=== PATIENT | male | born 1945 | race Caucasian/White ===

== ENCOUNTER 2016-10-21 08:51 | Emergency (ER) | payer OTHER ==
--- NOTE | 2016-10-21 09:25 | DIAGNOSTIC IMAGING REPORT ---
PROCEDURE: CT HEAD WITHOUT CONTRAST INDICATION: STROKE, mental status change TECHNIQUE: Axial CT images were acquired through the head. Coronal and sagittal reformations were created. COMPARISON: 08/15/2014 FINDINGS: Motion artifact through the lower aspect of the brain precludes good evaluation of the anterior temporal lobes and cerebellum. Mild cerebral cortical atrophy. New focal hypodensity in the left frontal soriano radiata white matter measuring approximately 1.8 cm and extending caudally to the left caudate nucleus. Additionally, there is a chronic left posterior basal ganglia lacunar infarct. Landa-white matter differentiation is normally maintained. No intracranial hemorrhage or extraaxial fluid collections. Ventricles are normal in size, shape and position. There is no mass, mass effect or midline shift. The calvarium is intact. The paranasal sinuses and mastoid air cells are normally aerated. The extracranial soft tissues and orbits are normal. IMPRESSION: 1. There is a new white matter infarct in the left frontal lobe soriano radiata since the prior study, potentially acute. 2. Chronic left posterior basal ganglia lacunar infarct. 3. No hemorrhage. 4. Findings discussed with Dr. Monge at [address] scans at this facility use dose modulation, iterative reconstruction, and/or weight-based dosing when appropriate to reduce radiation dose to as low as reasonably achievable.
--- NOTE | 2016-10-21 11:03 | DIAGNOSTIC IMAGING REPORT ---
PROCEDURE: US BILATERAL CAROTID DOPPLER INDICATION: STROKE/CVA TECHNIQUE: Color Doppler duplex imaging of the carotid and vertebral vessels. COMPARISON: 08/05/2014 FINDINGS: Right carotid system: Minimal eccentric carotid bulb mixed calcified and noncalcified plaque. No significant subjective luminal stenosis. Normal wave forms. Left carotid system: Short, 7 mm focal, mainly calcified shadowing plaque at the internal carotid artery origin causing mild subjective luminal stenosis. Vertebral System: Antegrade vertebral artery flow bilaterally. Right common carotid artery peak systolic velocity 72 cm/second. Right internal carotid artery peak systolic velocity 71 cm/second. Right external carotid artery peak systolic velocity 93 cm/second. Right gaiokduy-pg-uqmzxw carotid artery ratio 1.0 Right vertebral artery peak systolic velocity 32 cm/second. Left common carotid artery peak systolic velocity 65 cm/second. Left internal carotid artery peak systolic velocity 67 cm/second. Left external carotid artery peak systolic velocity 78 cm/second. Left djzwnqms-jf-sfyiqg carotid artery ratio 1.0 Left vertebral artery peak systolic velocity 33 cm/second. IMPRESSION: 1. New focal calcified plaque at the left internal carotid artery origin causing mild subjective luminal stenosis, estimated to be between 16 and 49%. 2. Minimal atherosclerotic plaque in the right carotid system, stable compared to the prior study. 3. Antegrade vertebral artery flow bilaterally. Velocity criteria are extrapolated from diameter data as defined by the Society of Radiologists in Ultrasound Consensus Conference, Radiology 2003; 229; 340-346.
--- NOTE | 2016-10-21 11:03 | DIAGNOSTIC IMAGING REPORT ---
PROCEDURE: US BILATERAL CAROTID DOPPLER INDICATION: STROKE/CVA TECHNIQUE: Color Doppler duplex imaging of the carotid and vertebral vessels. COMPARISON: 08/05/2014 FINDINGS: Right carotid system: Minimal eccentric carotid bulb mixed calcified and noncalcified plaque. No significant subjective luminal stenosis. Normal wave forms. Left carotid system: Short, 7 mm focal, mainly calcified shadowing plaque at the internal carotid artery origin causing mild subjective luminal stenosis. Vertebral System: Antegrade vertebral artery flow bilaterally. Right common carotid artery peak systolic velocity 72 cm/second. Right internal carotid artery peak systolic velocity 71 cm/second. Right external carotid artery peak systolic velocity 93 cm/second. Right xokxpstx-br-xhbvhb carotid artery ratio 1.0 Right vertebral artery peak systolic velocity 32 cm/second. Left common carotid artery peak systolic velocity 65 cm/second. Left internal carotid artery peak systolic velocity 67 cm/second. Left external carotid artery peak systolic velocity 78 cm/second. Left rzahexzk-jm-crhfhf carotid artery ratio 1.0 Left vertebral artery peak systolic velocity 33 cm/second. IMPRESSION: 1. New focal calcified plaque at the left internal carotid artery origin causing mild subjective luminal stenosis, estimated to be between 16 and 49%. 2. Minimal atherosclerotic plaque in the right carotid system, stable compared to the prior study. 3. Antegrade vertebral artery flow bilaterally. Velocity criteria are extrapolated from diameter data as defined by the Society of Radiologists in Ultrasound Consensus Conference, Radiology 2003; 229; 340-346.
--- NOTE | 2016-10-21 15:06 | DIAGNOSTIC IMAGING REPORT ---
PROCEDURE: US ABDOMEN ULTRASOUND-LIMITED INDICATION: ABNORMAL LFT TECHNIQUE: Landa scale and color Doppler sonographic images were obtained of the right upper quadrant. COMPARISON: CT abdomen pelvis 07/14/2014, abdominal ultrasound 05/04/2011 FINDINGS: Suboptimal exam secondary to the patient's body habitus, and inability to hold breath, and mobility problems. Liver is moderately enlarged measuring 20 cm in length and the parenchyma demonstrates diffuse hyper echogenicity. Along the anterior superior aspect of the left lobe of the liver, there is a partially exophytic, ovoid hypoechoic liver mass measuring 2.6 x 1.9 x 1.6 cm. Color Doppler imaging demonstrates vascularity towards this mass and a small amount within it. Its margins are somewhat irregular. No other liver masses or biliary dilatation. The gallbladder is distended but has normal wall thickness at 2.7 mm. Common duct is normal at 5.8 mm. No stones, sludge, pericholecystic fluid or Fitch's sign. Right kidney measures 11 cm in length. The visible portion of the pancreas is normal. The tail is not seen. Inferior vena cava and abdominal aorta are normal caliber. No free fluid in Morison's pouch. IMPRESSION: 1. No sonographic evidence of cholelithiasis or cholecystitis. 2. Mildly enlarged, hyperechoic liver with a 2.6 cm partially exophytic left lobe mass. Differential diagnosis includes fatty liver with focal fatty sparing , intrinsic liver disease with a regenerative or dysplastic nodule, possibly hepatocellular carcinoma, or adenoma. Routine three phase liver CT is recommended for further evaluation. Correlation with AFP levels may be useful. 3. Discussed with Dr. Pascual in the emergency room.
--- NOTE | 2016-10-21 16:28 | ED NURSING NOTES ---
Clinical Report - Nurses [facility] [address] [place] [address] 10/21/2016 8:51 Patient: BARBIE RUSHING TRIAGE Triage time 09:05. Chief Complaint: IMPAIRED SPEECH and FACIAL DROOP. --09:24 Harriett Valdes R.N. Acuity: LEVEL 2. --09:57 Harriett Valdes R.N. 09:15. --18:37 Harriett Valdes R.N. 09:15 10/21/16. BP: 83/62. HR: 73. RR: 22. O2 saturation: 97% on nasal cannula at 2 liters/minute. Temp: 97.9 F. Pain level now: 0/10. --18:37 Harriett Valdes R.N. Weight: 131.5 kg stated. Height/Length: 71 inches Per Patient. BMI: 40.5. --09:24 Harriett Valdes R.N. Medications Gabapentin Oral 300 mg, at bedtime. HCTZ 1/2 tab daily. Methadone HCl Oral (Tablet 10 mg) 1 tablet. Symbicort Inhalation (Aerosol 160-4.5 mcg/act). Topamax Oral 25 mg, 2x a day. ZyrTEC Allergy Oral (Tablet 10 mg) 1 tablet. --09:15 Harriett Valdes R.N. Lotrisone External. --09:15 Harriett Valdes R.N. Atorvastatin Calcium Oral. --09:16 Harriett Valdes R.N. Plavix Oral. --09:16 Harriett Valdes R.N. Nystop External. --09:16 Harriett Valdes R.N. Nystatin & Diaper Rash Product External. --09:16 Harriett Valdes R.N. MiraLax Oral. --09:17 Harriett Valdes R.N. OxyCODONE HCl Oral. --09:17 Harriett Valdes R.N. Spiriva HandiHaler Inhalation. --09:18 Harriett Valdes R.N. TraZODone HCl Oral. --09:20 Harriett Valdes R.N. LIsinopril. --09:21 Harriett Valdes R.N. Lisinopril Oral. --09:21 Harriett Valdes R.N. Aspirin Oral. --09:21 Harriett Valdes R.N. Theophylline Oral. --09:21 Harriett Valdes R.N. Metformin. --09:21 Harriett Valdes R.N. MetFORMIN HCl Oral. --09:21 Harriett Valdes R.N. Coreg. --09:21 Harriett Valdes R.N. Coreg Oral. --09:22 Harriett Valdes R.N. Effexor XR Oral. --09:22 Harriett Valdes R.N. ProAir HFA Inhalation. --09:22 Harriett Valdes R.N. Omeprazole Oral. --10:00 Harriett Valdes R.N. Allergies Cialis. --09:10 Harriett Valdes R.N. History Arrived by EMS. Historian: patient. ( at 0600 patient noticed some slurred speech and some minor confusin). Treatment SURVEILLANCE SYSTEMS ANALYST: None. See EMS report. --09:24 Harriett Valdes R.N. SOCIAL HX: Former smoker, end date 1999 (patient chews). No alcohol use or drug use. No infectious disease exposure. ABUSE ASSESSMENT: No report of abuse. SELF HARM ASSESSMENT: A self harm assessment was performed. The patient answered "no" to the question "Do you have thoughts of harming or killing yourself?" and "Are you here because you tried to hurt yourself?". FALL RISK ASSESSMENT: Fall risk assessment completed. No fall risk identified. NUTRITIONAL RISK ASSESSMENT: The nutritional risk assessment revealed no deficiencies. LEARNING NEEDS ASSESSMENT: The learning needs assessment revealed no barriers. FUNCTIONAL ASSESSMENT: Functional assessment performed: independent with the activities of daily living. SKIN INTEGRITY ASSESSMENT: Skin integrity risk assessment completed. No skin integrity risk identified. --09:57 Harriett Valdes R.N. PROBLEMS: TIA - Transient Ischemic Attack. Bowel Obstruction. Bipolar Disorder. Hepatitis. COPD - Chronic Obstructive Pulmonary Disease. Immunizations. Hypertension. Diabetes Mellitus. --09:09 Harriett Valdes R.N. Hypogonadism. Gastroesophageal Reflux Disease. Neuropathy. Obstructive Sleep Apnea. --09:53 Harriett Valdes R.N. Interventions ID band on patient. To treatment room. --09:57 Harriett Valdes R.N. PHYSICAL ASSESSMENT To room via stretcher. Patient gowned. ( patient able to smile and doesn't appear to have facial symmetry). GENERAL / NEURO / PSYCH: Awake. Oriented X 4. Alert. Appears in no acute distress. [place] Coma Scale: 15- eyes open spontaneously (4); best verbal response- oriented x 4 (5); best motor response- obeys commands (6). Slurred speech. Mood/affect normal. No motor deficit. No sensory deficit. NIH Stroke Scale: score 2. Performed at 0910. Level of Consciousness: alert (0). LOC Questions: both (0). LOC Commands: both (0). Best gaze: normal (0). Visual field loss: none (0). Facial palsy: normal (0). Motor arm: no drift right arm (0) and no drift left arm (0). Motor leg: no drift right leg (0) and no drift left leg (0). Limb ataxia: none (0). Sensory loss: none (0). Aphasia: mild to moderate (1). Dysarthria: mild to moderate (1). Extinction and inattention: none (0). HEENT: No signs of head trauma. CVS: Cardiac rhythm: atrial fib/flutter. SKIN: Skin is dry. --09:40 Harriett Valdes R.N. 09:17 10/21/16. BP: 83/62. HR: 73. RR: 22. O2 saturation: 97%. Temp: 97.9 F. --09:40 Harriett Valdes R.N. NURSING PROGRESS NOTES EKG time: (911). EKG was ordered, performed by a tech and shown to the ED physician. --09:26 Lynette Garcia 09:16 10/21/2016 Site #1 started via IV in the left forearm with an 20g angiocath, with aseptic technique and good blood return; one attempt. Blood drawn: rainbow set. Labeled in the presence of the patient and sent to the lab. Saline lock flushed with 5 mL saline (placed by Kailey Durbin RN). --09:26 Harriett Valdes R.N. ( [facility] [place] 162). --09:28 Harriett Valdes R.N. Oxygen administered at 2 liters. Patient gowned. Two patient identifiers checked. Call light placed in reach. Side rails up x 2. Bed placed in lowest position. Brakes of bed on. ED physician notified. --09:41 Harriett Valdes R.N. 09:48 10/21/2016 Aspirin PO 325 mg given. Allergies verified and confirmed 5 rights. --09:48 Harriett Valdes R.N. 09:35. ( [facility] [place] 162). --09:49 Harriett Valdes R.N. ( patient given oral fluids, swallowing without difficulty). --09:50 Harriett Valdes R.N. 10:12 10/21/2016 Started bag #1 1000 mL IV Fluids IV NS (Saline); at 1000 mL/hr via site #1. Allergies verified and confirmed 5 rights. IV patency established. IV site checked: no pain, redness, or swelling. IV flushed thoroughly pre- and post-medication administration. --10:12 Harriett Valdes R.N. 08:56. ( patient to CT immediately upon arrival). --10:29 Harriett Valdes R.N. Reassessment after fluids administered. He reports no complaints and he is resting quietly. Overall patient status is the same. GENERAL / NEURO / PSYCH: Alert. Oriented X 4. Patient's speech is slurred. RESPIRATORY: No respiratory distress. SKIN: Skin is warm and dry. --11:07 Harriett Valdes R.N. 11:06 10/21/2016 IV Fluids IV NS Discontinued: bag #1 infused. Total amount infused: 1000 mL. IV patency established. IV site checked: no pain, redness, or swelling. IV flushed thoroughly. --11:16 Harriett Valdes R.N. 11:07 10/21/2016 Started bag #1 1000 mL IV Fluids IV NS (Saline); at 1000 mL/hr via site #1 --11:17 Harriett Valdes R.N. 12:43 10/21/2016 IV Fluids IV NS Bag Change: bag #2 infused. Total amount infused: 1000. STARTED bag #3 (1000 mL) at 150 mL/hr via IV pump. Confirmed 5 rights. IV patency established. IV site checked: no pain, redness, or swelling. IV flushed thoroughly. --12:58 Harriett Valdes R.N. 14:34 10/21/2016 Duoneb (Ipratropium-Albuterol) Neb TX Nebulizer 1 unit dose given. Given by the respiratory therapist. Allergies verified and confirmed 5 rights. Juvenal Fritz --15:19 Juvenal Fritz 11:00 10/21/16. BP: 84/63. HR: 71. RR: 17. O2 saturation: 98%. 10:30 10/21/16. BP: 77/57. HR: 70. RR: 17. O2 saturation: 98%. 10:15 10/21/16. BP: 84/52. HR: 74. RR: 20. O2 saturation: 98%. 10:00 10/21/16. BP: 82/56. HR: 73. RR: 18. O2 saturation: 99%. 09:45 10/21/16. BP: 77/60. HR: 76. RR: 16. O2 saturation: 98%. 09:17 10/21/16. BP: 83/62. HR: 73. RR: 22. O2 saturation: 97%. Temp: 97.9 F. --15:59 Harriett Valdes R.N. 11:30 10/21/16. BP: 91/57. HR: 69. RR: 16. O2 saturation: 99%. --16:01 Harriett Valdes R.N. 15:30 10/21/16. BP: 110/73. HR: 77. RR: 23. O2 saturation: 99%. 15:00 10/21/16. BP: 79/54. HR: 70. RR: 17. O2 saturation: 97%. 14:30 10/21/16. BP: 72/38. HR: 72. RR: 16. O2 saturation: 98%. 14:00 10/21/16. BP: 81/59. HR: 70. RR: 16. O2 saturation: 97%. 13:45 10/21/16. BP: 81/61. HR: 71. RR: 16. 13:00 10/21/16. BP: 92/59. HR: 74. RR: 23. O2 saturation: 98%. 12:30 10/21/16. BP: 88/68. HR: 77. RR: 18. O2 saturation: 98%. 12:00 10/21/16. BP: 85/53. HR: 71. RR: 16. O2 saturation: 98%. --16:07 Harriett Valdes R.N. Reassessment after fluids administered. He reports no complaints. Overall patient status is improved- he states feels better. ( patient ambulated down [address] with walker. Patient lifted walker and carried it with him. He became a little dyspneic upon returning to room and sitting down. Placed back on O2 at 2L.). GENERAL / NEURO / PSYCH: Alert. Oriented X 4. --16:09 Harriett Valdes R.N. [facility]-- 0905. --18:15 Harriett Valdes R.N. --END STRIKE>> Correction --18:15 Harriett Valdes R.N. 17:30. ( 1730 Administered 10 mg Xarelto PO,unable to chart in CPOE as it would not accept charting.). --17:46 Harriett Valdes R.N. DISPOSITION / DISCHARGE 17:40 10/21/2016 IV Fluids IV NS Discontinued: bag #3 discontinued upon discharge. Total amount infused: 750 mL. IV patency established. IV site checked: no pain, redness, or swelling. IV flushed thoroughly. --18:00 Harriett Valdes R.N. 17:44 10/21/2016 Site #1 removed upon discharge. Catheter intact. Pressure dressing applied. --17:59 Harriett Valdes R.N. Departure time: 1744. Condition at departure: improved. ( Last sets of vitals did not print). No learning barriers present. Discharge instructions provided and reviewed with the patient. Patient verbalized understanding. Written instructions provided in [place]. ( appointment were set for patient follow-up for his pcp and for an echocardiogram.). The patient was discharged home and accompanied by inker and opaquer. He left the Emergency Department in a wheelchair and via private vehicle. Squirt Machine Operator driving. --18:05 Harriett Valdes R.N. 17:58 10/21/16. RR: 20. O2 saturation: 98%. Temp: 97.6 F. Pain level now 0/10. --18:05 Harriett Valdes R.N. Locked/Released at 10/21/2016 18:38 by Harriett Valdes R.N.
--- NOTE | 2016-10-21 16:28 | ED NURSING NOTES ---
Clinical Report - Nurses [facility] [address] [place] [address] 10/21/2016 8:51 Patient: BARBIE RUSHING TRIAGE Triage time 09:05. Chief Complaint: IMPAIRED SPEECH and FACIAL DROOP. --09:24 Harriett Valdes R.N. Acuity: LEVEL 2. --09:57 Harriett Valdes R.N. 09:15. --18:37 Harriett Valdes R.N. 09:15 10/21/16. BP: 83/62. HR: 73. RR: 22. O2 saturation: 97% on nasal cannula at 2 liters/minute. Temp: 97.9 F. Pain level now: 0/10. --18:37 Harriett Valdes R.N. Weight: 131.5 kg stated. Height/Length: 71 inches Per Patient. BMI: 40.5. --09:24 Harriett Valdes R.N. Medications Gabapentin Oral 300 mg, at bedtime. HCTZ 1/2 tab daily. Methadone HCl Oral (Tablet 10 mg) 1 tablet. Symbicort Inhalation (Aerosol 160-4.5 mcg/act). Topamax Oral 25 mg, 2x a day. ZyrTEC Allergy Oral (Tablet 10 mg) 1 tablet. --09:15 Harriett Valdes R.N. Lotrisone External. --09:15 Harriett Valdes R.N. Atorvastatin Calcium Oral. --09:16 Harriett Valdes R.N. Plavix Oral. --09:16 Harriett Valdes R.N. Nystop External. --09:16 Harriett Valdes R.N. Nystatin & Diaper Rash Product External. --09:16 Harriett Valdes R.N. MiraLax Oral. --09:17 Harriett Valdes R.N. OxyCODONE HCl Oral. --09:17 Harriett Valdes R.N. Spiriva HandiHaler Inhalation. --09:18 Harriett Valdes R.N. TraZODone HCl Oral. --09:20 Harriett Valdes R.N. LIsinopril. --09:21 Harriett Valdes R.N. Lisinopril Oral. --09:21 Harriett Valdes R.N. Aspirin Oral. --09:21 Harriett Valdes R.N. Theophylline Oral. --09:21 Harriett Valdes R.N. Metformin. --09:21 Harriett Valdes R.N. MetFORMIN HCl Oral. --09:21 Harriett Valdes R.N. Coreg. --09:21 Harriett Valdes R.N. Coreg Oral. --09:22 Harriett Valdes R.N. Effexor XR Oral. --09:22 Harriett Valdes R.N. ProAir HFA Inhalation. --09:22 Harriett Valdes R.N. Omeprazole Oral. --10:00 Harriett Valdes R.N. Allergies Cialis. --09:10 Harriett Valdes R.N. History Arrived by EMS. Historian: patient. ( at 0600 patient noticed some slurred speech and some minor confusin). 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 See EMS report. --09:24 Harriett Valdes R.N. SOCIAL HX: Former smoker, end date 1999 (patient chews). No alcohol use or drug use. No infectious disease exposure. ABUSE ASSESSMENT: No report of abuse. SELF HARM ASSESSMENT: A self harm assessment was performed. The patient answered "no" to the question "Do you have thoughts of harming or killing yourself?" and "Are you here because you tried to hurt yourself?". FALL RISK ASSESSMENT: Fall risk assessment completed. No fall risk identified. NUTRITIONAL RISK ASSESSMENT: The nutritional risk assessment revealed no deficiencies. LEARNING NEEDS ASSESSMENT: The learning needs assessment revealed no barriers. FUNCTIONAL ASSESSMENT: Functional assessment performed: independent with the activities of daily living. SKIN INTEGRITY ASSESSMENT: Skin integrity risk assessment completed. No skin integrity risk identified. --09:57 Harriett Valdes R.N. PROBLEMS: TIA - Transient Ischemic Attack. Bowel Obstruction. Bipolar Disorder. Hepatitis. COPD - Chronic Obstructive Pulmonary Disease. Immunizations. Hypertension. Diabetes Mellitus. --09:09 Harriett Valdes R.N. Hypogonadism. Gastroesophageal Reflux Disease. Neuropathy. Obstructive Sleep Apnea. --09:53 Harriett Valdes R.N. Interventions ID band on patient. To treatment room. --09:57 Harriett Valdes R.N. PHYSICAL ASSESSMENT To room via stretcher. Patient gowned. ( patient able to smile and doesn't appear to have facial symmetry). GENERAL / NEURO / PSYCH: Awake. Oriented X 4. Alert. Appears in no acute distress. Hurst Coma Scale: 15- eyes open spontaneously (4); best verbal response- oriented x 4 (5); best motor response- obeys commands (6). Slurred speech. Mood/affect normal. No motor deficit. No sensory deficit. NIH Stroke Scale: score 2. Performed at 0910. Level of Consciousness: alert (0). LOC Questions: both (0). LOC Commands: both (0). Best gaze: normal (0). Visual field loss: none (0). Facial palsy: normal (0). Motor arm: no drift right arm (0) and no drift left arm (0). Motor leg: no drift right leg (0) and no drift left leg (0). Limb ataxia: none (0). Sensory loss: none (0). Aphasia: mild to moderate (1). Dysarthria: mild to moderate (1). Extinction and inattention: none (0). HEENT: No signs of head trauma. CVS: Cardiac rhythm: atrial fib/flutter. SKIN: Skin is dry. --09:40 Harriett Valdes R.N. 09:17 10/21/16. BP: 83/62. HR: 73. RR: 22. O2 saturation: 97%. Temp: 97.9 F. --09:40 Harriett Valdes R.N. NURSING PROGRESS NOTES EKG time: (911). EKG was ordered, performed by a tech and shown to the ED physician. --09:26 Lynette Garcia 09:16 10/21/2016 Site #1 started via IV in the left forearm with an 20g angiocath, with aseptic technique and good blood return; one attempt. Blood drawn: rainbow set. Labeled in the presence of the patient and sent to the lab. Saline lock flushed with 5 mL saline (placed by Kailey Durbin RN). --09:26 Harriett Valdes R.N. ( [id number]). --09:28 Harriett Valdes R.N. Oxygen administered at 2 liters. Patient gowned. Two patient identifiers checked. Call light placed in reach. Side rails up x 2. Bed placed in lowest position. Brakes of bed on. ED physician notified. --09:41 Harriett Valdes R.N. 09:48 10/21/2016 Aspirin PO 325 mg given. Allergies verified and confirmed 5 rights. --09:48 Harriett Valdes R.N. 09:35. ( [facility]). --09:49 Harriett Valdes R.N. ( patient given oral fluids, swallowing without difficulty). --09:50 Harriett Valdes R.N. 10:12 10/21/2016 Started bag #1 1000 mL IV Fluids IV NS (Saline); at 1000 mL/hr via site #1. Allergies verified and confirmed 5 rights. IV patency established. IV site checked: no pain, redness, or swelling. IV flushed thoroughly pre- and post-medication administration. --10:12 Harriett Valdes R.N. 08:56. ( patient to CT immediately upon arrival). --10:29 Harriett Valdes R.N. Reassessment after fluids administered. He reports no complaints and he is resting quietly. Overall patient status is the same. GENERAL / NEURO / PSYCH: Alert. Oriented X 4. Patient's speech is slurred. RESPIRATORY: No respiratory distress. SKIN: Skin is warm and dry. --11:07 Harriett Valdes R.N. 11:06 10/21/2016 IV Fluids IV NS Discontinued: bag #1 infused. Total amount infused: 1000 mL. IV patency established. IV site checked: no pain, redness, or swelling. IV flushed thoroughly. --11:16 Harriett Valdes R.N. 11:07 10/21/2016 Started bag #1 1000 mL IV Fluids IV NS (Saline); at 1000 mL/hr via site #1 --11:17 Harriett Valdes R.N. 12:43 10/21/2016 IV Fluids IV NS Bag Change: bag #2 infused. Total amount infused: 1000. STARTED bag #3 (1000 mL) at 150 mL/hr via IV pump. Confirmed 5 rights. IV patency established. IV site checked: no pain, redness, or swelling. IV flushed thoroughly. --12:58 Harriett Valdes R.N. 14:34 10/21/2016 Duoneb (Ipratropium-Albuterol) Neb TX Nebulizer 1 unit dose given. Given by the respiratory therapist. Allergies verified and confirmed 5 rights. Juvenal Fritz --15:19 Juvenal Fritz 11:00 10/21/16. BP: 84/63. HR: 71. RR: 17. O2 saturation: 98%. 10:30 10/21/16. BP: 77/57. HR: 70. RR: 17. O2 saturation: 98%. 10:15 10/21/16. BP: 84/52. HR: 74. RR: 20. O2 saturation: 98%. 10:00 10/21/16. BP: 82/56. HR: 73. RR: 18. O2 saturation: 99%. 09:45 10/21/16. BP: 77/60. HR: 76. RR: 16. O2 saturation: 98%. 09:17 10/21/16. BP: 83/62. HR: 73. RR: 22. O2 saturation: 97%. Temp: 97.9 F. --15:59 Harriett Valdes R.N. 11:30 10/21/16. BP: 91/57. HR: 69. RR: 16. O2 saturation: 99%. --16:01 Harriett Valdes R.N. 15:30 10/21/16. BP: 110/73. HR: 77. RR: 23. O2 saturation: 99%. 15:00 10/21/16. BP: 79/54. HR: 70. RR: 17. O2 saturation: 97%. 14:30 10/21/16. BP: 72/38. HR: 72. RR: 16. O2 saturation: 98%. 14:00 10/21/16. BP: 81/59. HR: 70. RR: 16. O2 saturation: 97%. 13:45 10/21/16. BP: 81/61. HR: 71. RR: 16. 13:00 10/21/16. BP: 92/59. HR: 74. RR: 23. O2 saturation: 98%. 12:30 10/21/16. BP: 88/68. HR: 77. RR: 18. O2 saturation: 98%. 12:00 10/21/16. BP: 85/53. HR: 71. RR: 16. O2 saturation: 98%. --16:07 Harriett Valdes R.N. Reassessment after fluids administered. He reports no complaints. Overall patient status is improved- he states feels better. ( patient ambulated down [address] with walker. Patient lifted walker and carried it with him. He became a little dyspneic upon returning to room and sitting down. Placed back on O2 at 2L.). GENERAL / NEURO / PSYCH: Alert. Oriented X 4. --16:09 Harriett Valdes R.N. [facility]. --18:15 Harriett Valdes R.N. --END STRIKE>> Correction --18:15 Harriett Valdes R.N. 17:30. ( 1730 Administered 10 mg Xarelto PO,unable to chart in CPOE as it would not accept charting.). --17:46 Harriett Valdes R.N. DISPOSITION / DISCHARGE 17:40 10/21/2016 IV Fluids IV NS Discontinued: bag #3 discontinued upon discharge. Total amount infused: 750 mL. IV patency established. IV site checked: no pain, redness, or swelling. IV flushed thoroughly. --18:00 Harriett Valdes R.N. 17:44 10/21/2016 Site #1 removed upon discharge. Catheter intact. Pressure dressing applied. --17:59 Harriett Valdes R.N. Departure time: 1744. Condition at departure: improved. ( Last sets of vitals did not print). No learning barriers present. Discharge instructions provided and reviewed with the patient. Patient verbalized understanding. Written instructions provided in Polish. ( appointment were set for patient follow-up for his pcp and for an echocardiogram.). The patient was discharged home and accompanied by library cataloging technician. He left the Emergency Department in a wheelchair and via private vehicle. Senior Communications Specialist driving. --18:05 Harriett Valdes R.N. 17:58 10/21/16. RR: 20. O2 saturation: 98%. Temp: 97.6 F. Pain level now 0/10. --18:05 Harriett Valdes R.N. Locked/Released at 10/21/2016 18:38 by Harriett Valdes R.N.
--- NOTE | 2016-10-21 16:28 | ED CLINICAL REPORT ---
Clinical Report - Physicians/Mid Levels [facility] [address] [place] [address] 10/21/2016 8:51 Patient: BARBIE RUSHING Time Seen: 08:56; initial patient contact. Arrived- By ambulance. HISTORY OF PRESENT ILLNESS Chief Complaint: IMPAIRED SPEECH. confusion. This started today, unknown when patient was last known well and is still present but is better now. No weakness, numbness, tingling, visual disturbance or impaired swallowing. No recent fall. He has had difficulty with speech. No difficulty walking. At its maximum deficit described as mild. When seen in the E.D., it was almost gone. No dizziness, altered mental status, seizure or blackouts. Usually is alert and oriented X3. He usually walks without assistance. (Patient states that he had been up this morning watching TV, and noticed that he was feeling confused. He thinks the symptoms may have started around 6:00, but this also may have been earlier, as he had been up watching TV for some time and head been dozing intermittently. He states he thought that his brother was in the room with him, but he was not. Patient does state that he has some pieces of furniture that are in back of the chair that he sits and to watch TV, and sometimes out of the corner of his eye, he thinks that somebody is in the room with him. However, it is really just the furniture he states. Patient also states that he felt as though he was part of the TV program he was watching. Patient states that he waited a while, thinking that the symptoms would go away on their own, but after some time he decided to call EMS. He states that when he spoke with the dispatcher on the phone, he noticed that his speech was not as clear as normal. However, he states that he did not have his dentures in, and that his mouth was also dry, so he is not sure what the cause of the unclear speech was. Patient denies any focal deficits anywhere else. He denies any visual changes. No new facial droop, no extremity weakness, no difficulty getting up out of his chair, no difficulty with ambulation. Patient states that overall he feels he has been doing well living at home. He has a friend who stops by to bring him groceries, but patient states he handles his medications himself. Dr. Boles is his primary care physician. Patient states after taking a sip of water here in the emergency department, his speech seems much better and that he felt that it is back to normal. Patient does have a history of a CVA previously, which she states left one side weak for some time, though this is mostly resolved. Patient states he is on aspirin for his atrial fibrillation but does not think he still takes Plavix. He is not on Coumadin.). Similar symptoms previously: Worse. Recent medical care: Not recently seen/assessed. REVIEW OF SYSTEMS No fever, headache, head injury, chest pain or difficulty breathing. No cough, sputum production, sore throat, abdominal pain or nausea. No diarrhea, black stools, difficulty with urination, skin rash or enlarged lymph nodes. No joint pain, vomiting, bloody stools or back pain. All systems otherwise negative, except as recorded above. PAST HISTORY Problems: Hypogonadism. Gastroesophageal Reflux Disease. Neuropathy. Obstructive Sleep Apnea. TIA - Transient Ischemic Attack. Bowel Obstruction. Bipolar Disorder. Hepatitis. COPD - Chronic Obstructive Pulmonary Disease. Immunizations. Hypertension. Diabetes Mellitus. Additional Surgeries: Hernia Repair. Knee Surgery. Medications: ProAir HFA Inhalation. Effexor XR Oral. Coreg Oral. Coreg. MetFORMIN HCl Oral. Metformin. Theophylline Oral. Aspirin Oral. Lisinopril Oral. LIsinopril. TraZODone HCl Oral. Spiriva HandiHaler Inhalation. OxyCODONE HCl Oral. MiraLax Oral. Nystatin & Diaper Rash Product External. Nystop External. Plavix Oral. Atorvastatin Calcium Oral. Lotrisone External. Gabapentin Oral 300 mg, at bedtime. HCTZ 1/2 tab daily. Methadone HCl Oral (Tablet 10 mg) 1 tablet. Symbicort Inhalation (Aerosol 160-4.5 mcg/act). Topamax Oral 25 mg, 2x a day. ZyrTEC Allergy Oral (Tablet 10 mg) 1 tablet. Allergies: Cialis. SOCIAL HISTORY Former smoker, end date 1999. No alcohol use or drug use. Patient uses chew. ADDITIONAL NOTES The nursing notes have been reviewed. PHYSICAL EXAM Vital Signs: 10/21/2016 09:17 BP: 83/62. HR: 73. RR: 22. O2 saturation: 97%. Temp: 97.9 F. Have been reviewed and appear to be correct. Appearance: Alert. No acute distress. Head: Head atraumatic. Eyes: Pupils equal, round and reactive to light. ENT: Normal ENT inspection. Airway intact. Neck: Normal inspection. CVS: Normal heart rate and rhythm. Heart sounds normal. Pulses normal. Respiratory: No respiratory distress. Breath sounds normal. Abdomen: Soft and nontender. Skin: Skin warm and dry. Normal skin color. No rash. Normal skin turgor. Extremities: No lower extremity edema. Neuro: Alert. Oriented X 3. Mood/affect normal. No cerebellar findings. No motor deficit. No sensory deficit. (Patient's speech is actually fairly clear, though he does not have any teeth and dentures are not in, so there is mild slurring for this reason. He has mild left facial droop, which patient states is at baseline.). LABS, X-RAYS, AND EKG EKG: EKG time: (911). Rate: 73. Atrial fibrillation. Abnormal P waves. Decreased QRS voltage. Normal axis. Normal ST and T waves, QT and QTc. Prior EKG unavailable. The study has been interpreted contemporaneously by me. The study has been independently viewed by me. The EKG appears to be a good tracing. I agree with and confirm the computer reading of the EKG. Rhythm Strip #1: Time: (909). Rate= 77. Atrial fibrillation. Narrow QRS complexes. Irregularly irregular rhythm. No ectopy. Conduction normal. Normal ST segments and T waves. The study was interpreted by me. CT Head: No bony abnormalities, no hemorrhage, no intracranial mass, no midline shift and no hydrocephalus. There is atrophy is present (Old CVA L hemisphere). (New, small area of ischemia, L frontal lobe.). Head CT performed without contrast. The study was independently viewed by me, interpreted by the radiologist and contemporaneously by me and discussed with the radiologist. Prior studies were not available for comparison. Abdominal Sonogram: The gallbladder is normal. Common duct is normal. Normal liver. Pancreas normal. No free fluid. The study was independently viewed by me, interpreted by the radiologist and contemporaneously by me and discussed with the radiologist. Study included the gallbladder and upper abdomen. Prior studies were not available for comparison. Duplex Ultrasound: Right and left carotid study. (Patient has up to a 50% occlusion bilaterally, with the left being worse than the right. However, significant flow was still noted through the carotid arteries.). Study type: utilized duplex sonography. The exam was performed by a manufacturing lab technician. The study was interpreted by the radiologist and discussed with the radiologist. A comparison with prior studies was made (slightly worsened). Laboratory Tests: UA-Culture if indicated: (STANISLAV: 10/21/2016 12:45) ( [facility] [place] 10/21/2016 13:13) Final results Test Result Flag Units (Reference) URINE COLOR KELLY URINE APPEARANCE CLEAR URINE GLUCOSE NEGATIVE (NEGATIVE) URINE BILIRUBIN NEGATIVE (NEGATIVE) URINE KETONE NEGATIVE (NEGATIVE) URINE SPECIFIC GRAVITY 1.010 (1.010-1.030) URINE PH 6.0 (5.0-8.0) URINE PROTEIN NEGATIVE (NEGATIVE) URINE UROBILINOGEN 4.0 EU/dL (0.2-1.0) The urobilinogen reagent area may react with interferingsubstances known to react with Dru's reagent such asp-aminosalicylic acid and sulfonamides. Atypical colorreactions may be obtained in the presence of highconcentrations of p-aminobenzoic acid. The absence ofurobilinogen cannot be determined with this test. URINE NITRITE NEGATIVE (NEGATIVE) URINE BLOOD NEGATIVE (NEGATIVE) URINE LEUK ESTERASE NEGATIVE (NEGATIVE) URINE RBC 0-1 rbc/hpf (0-1) URINE WBC 1-3 wbc/hpf (0-1) URINE EPITHELIAL CELLS NONE SEEN EPI/hpf (0-5) URINE BACTERIA TRACE (<1+) (NONE SEEN) URINE COMMENT CULT NOT INDICATED 10-15 HYALINE CASTS. 1-3 CALCIUM OXALATE CRYSTALS. 2+MUCOUS.URINE CULTURES ARE SET-UP BASED ON THE FOLLOWING CRITERIA:POSITIVE NITRITEPOSITIVE LEUKOCYTE ESTERASEGREATER THAN 10 WHITE BLOOD CELLSMODERATE (2+) OR GREATER BACTERIA CBC w Diff: (STANISLAV: 10/21/2016 09:05) ( [facility] 10/21/2016 09:25) Final results Test Result Flag Units (Reference) WHITE BLOOD COUNT 4.0 L K/uL (4.5-11.5) RED BLOOD COUNT 3.77 L M/uL (4.50-5.90) HEMOGLOBIN 11.9 L gm/dL (13.5-17.5) HEMATOCRIT 36.4 L % (41.0-53.0) MEAN CELL VOLUME 97 fL (80-100) MEAN CORPUSCULAR HGB 32 pg (26-34) MEAN CORPUSCULAR HGB CONC 33 g/dL (31-37) RED CELL DISTRIBUTION WIDTH 15.0 H % (11.6-14.8) PLATELET COUNT 141 L K/uL (150-400) NEUTROPHIL % 63.5 % (50-75) LYMPH % 25.8 % (25-40) MONO % 10.2 % (3-14) EOSINOPHIL % 0.2 % (0-4) BASOPHIL % 0.3 % (0-2) PT with INR: (STANISLAV: 10/21/2016 09:05) ( [facility] 10/21/2016 09:35) Final results Test Result Flag Units (Reference) INR 1.2 (0.8-1.2) Low Intensity Therapy: INR 1.5-2.0 PT range 18.5-23.1Mod.Intensity Therapy: INR 2.0-3.0 PT range 23.1-31.5High Intensity Therapy: INR 2.5-3.5 PT range 27.4-35.5High Intensity Therapy 2: INR 3.0-4.0 PT range 31.5-39.3 APTT 34 SECONDS (24-34) FIBRINOGEN 245 mg/dL (193-455) D-DIMER QUANTITATIVE < 0.27 L ug/mLFEU (0.27-0.52) The primary value of this quantitative assay relates toits negative predictive value (i.e. exclusion) of pulmonaryembolism/deep vein thrombosis/DIC.Elevated levels of d-dimer may also occur with:, age, cancer, inflammation, liver disease,post-op, infection, hematoma, coronary disease, peripheralarteriopathy, bleeding disorders and thrombolytic treatment.Results should be correlated with other clinical andradiological data.Testing Methodology: Latex Immunoassay Troponin-I: (STANISLAV: 10/21/2016 14:20) ( [facility] 10/21/2016 14:56) Final results Test Result Flag Units (Reference) TROPONIN I <0.05 ng/mL (0.00-1.5) TROPONIN REFERENCE RANGE:<0.1 NEGATIVE0.1-1.5 INDETERMINANT>1.5 POSITIVE Lactate, Serum: (STANISLAV: 10/21/2016 10:43) ( [facility] 10/21/2016 11:24) Final results Test Result Flag Units (Reference) LACTIC ACID 1.6 mmol/L (0.4-2.0) CMP: (STANISLAV: 10/21/2016 09:05) ( [facility] 10/21/2016 09:41) Final results Test Result Flag Units (Reference) GLUCOSE 138 H mg/dL (70-110) BUN 10 mg/dL (7-18) CREATININE 0.7 mg/dL (0.6-1.3) Estimated GFR >60 mL/min Estimated GFR- >60 mL/min Note: Persistent reduction over 3 months in eGFR<60 mL/min/1.73 m2 defines CKD. Patients with eGFR values>=60 mL/min/1.73 m2 may also have CKD if evidence ofpersistent proteinuria. Additional information may be foundat www.[email or web address].org. SODIUM 139 mmol/L (136-145) POTASSIUM 3.8 mmol/L (3.5-5.1) CHLORIDE 103 mmol/L (98-107) CARBON DIOXIDE 31 mmol/L (21-32) CALCIUM 8.2 L mg/dL (8.5-10.1) TOTAL PROTEIN 7.6 g/dL (6.4-8.2) ALBUMIN 2.5 L g/dL (3.3-5.0) BILIRUBIN, TOTAL 0.8 mg/dL (0.0-1.0) ALKALINE PHOSPHATASE 155 H U/L (46-116) AST (SGOT) 222 H U/L (15-37) ALT (SGPT) 112 H U/L (12-78) . Pulse Oximetry: 10/21/2016 09:17 O2 saturation: 97%. (FIO2 - room air). Interpretation: normal. PROGRESS AND PROCEDURES Course of Care: This patient was evaluated as a code stroke in the emergency departmentupon arrival. He was sent for CT scan of the head whichdid not show any acute abnormalities. He was worked up extensively for his symptoms whichwere somewhat unclear.his EKG showed atrial fibrillation, and the patient stated he was not currently on Coumadin. His labs showed a negative troponin and unremarkable basic labs, with the exception of elevated LFTs. I did obtain an ultrasound of the patient's right upper quadrant in light of this, and no distinct abnormalities were noted. The patient was asymptomatic by the time of arrival in the emergency department and I felt that it was possible that he had had a TIA. The patient had a history of CVA/TIA and was certainly at risk. I felt that the patient should be worked up again with a carotid duplex and echocardiogram. The carotid study was performed in the emergency department and showed mild to moderate stenosis of the patient's carotids left worse than right. The echocardiogram was unable to be done, due to the tech being unavailable that day. I did speak with Dr. Carr the patient's primary care physician, who stated that as today is Tuesday he will see the patient first thing on to stay,and we have made an appointment for the patient to have his echocardiogram on Tuesday morning. I did discuss in depth with the patient and his friend who is also his caregiver, that he will need to be focused on doing all he can to prevent further episodes and potentially, a larger stroke. Dr. Carr has requested that the patient be started on Xarelto which I have done in the emergency department. Patient is also been given an aspirin here. At this point in time, the patient wishes to go home and states he feels safe being at home and has been able to ambulate in the emergency department without difficulty. We have discussed the indications for return. Discussed case with on-call health care provider, (Ramana). Reviewed test results and need for additional work-up. Agreed upon treatment plan and need for patient follow-up. Health care provider will see patient in office. Patient and friend counseled in person regarding the patient's stable condition, test results, diagnosis and need for additional testing and follow-up. Concerns were addressed. Old medical records reviewed. Disposition: Discharged. Condition: stable and improved. CLINICAL IMPRESSION Single acute transient ischemic attack. Moderate dehydration INSTRUCTIONS (You have an appointment at [facility] for an echocardiogram (heart ultrasound) at 10:30 AM on Tuesday, 10/25. The next morning at 9:50, you have an appointment with Dr. Boles to follow up the results of this test. In the meantime, it is very important that you take the blood thinners you have been started on, as well as your other medications. You have had a mini-stroke today, and your symptoms have completely resolved. The biggest issue with this kind of stroke is that it can be a warning that you are at risk for a bigger stroke. The most important thing at this point in time is to do what you can to prevent that from happening. This is the reason for the blood thinners and the other medications you are on.). Warnings: Further evaluation is necessary. It is very important to follow up with a physician. GENERAL WARNINGS: Return or contact your physician immediately if your condition worsens or changes unexpectedly, if not improving as expected, or if other problems arise. Your Current Medications: CONTINUE TAKING THE FOLLOWING MEDICATIONS: Aspirin Oral. Atorvastatin Calcium Oral. Coreg*. Coreg Oral. Effexor XR Oral. Gabapentin Oral : 300 mg at bedtime. HCTZ 1/2 tab daily*. LIsinopril*. Lisinopril Oral. Lotrisone External. Metformin*. MetFORMIN HCl Oral. Methadone HCl Oral : Tablet 10 mg, 1 tablet. MiraLax Oral. Nystatin & Diaper Rash Product External. Nystop External. Omeprazole Oral. OxyCODONE HCl Oral. Plavix Oral. ProAir HFA Inhalation. Spiriva HandiHaler Inhalation. Symbicort Inhalation : Aerosol 160-4.5 mcg/act. Theophylline Oral. Topamax Oral : 25 mg 2x a day. TraZODone HCl Oral. ZyrTEC Allergy Oral : Tablet 10 mg, 1 tablet. Prescription Medications: Xarelto 10 mg PO daily, disp #30, generic okay, no refills. Understanding of the discharge instructions verbalized by patient. Follow-up with: Sabino Boles MD, [facility], , [facility], [address] [place] [address] Follow up Tuesday. Reason for referral: You have an appointment scheduled for 9:50 AM on Tuesday, October 26, to follow up your heart ultrasound and blood thinners for your heart. (Electronically signed by Alissa Pascual MD 10/31/2016 10:15)
--- NOTE | 2016-10-21 16:28 | ED ORDER SUMMARY ---
..... Patient: BARBIE RUSHING OrderSheet [facility] VisitID: [id number] [address] [place] [address] 71y, M Registration Date/Time: 10/21/2016 ORDER SHEET Weight: 131.5 kg (stated) Allergies: Cialis GENERAL ORDERS: CT Head wo Cont Urgent (08:55 10/21/2016 RENATAoerner verbal order read back to Shona Louie) (Ack 8:57 KHoerner) (9:02 KHoerner) Stroke Panel Stat (08:58 10/21/2016 Shona Louie) (Ack 8:58 RENATAoerner) (9:27 LAbe R.N.) Transport Medic (Continuous) (09:10/21/2016 TJayne R.N. per protocol) (9:27 LAbe R.N.) EKG - ER Stat (09:10/21/2016 LENAayne R.N. per protocol) (9:26 Shon) POC Glucose (09:23 10/21/2016 TJayne R.N. per protocol) (9:27 LAbe R.N.) Oxygen (2 L/min) (NC) (09:23 10/21/2016 TJayne R.N. per protocol) (9:27 LAbe R.N.) Pulse oximeter (09:23 10/21/2016 TJayne R.N. per protocol) (9:27 LAbe R.N.) PT with INR Urgent (09:30 10/21/2016 Betty BARRIOS) (Ack 9:34 RENATAoerner) (10:02 oerner) UA-Culture if indicated Urgent (10:10/21/2016 Betty BARRIOS) (Ack 10:02 Yeimi) (13:00 LAbe R.N.) Echocardiogram Urgent (10:10/21/2016 Betty BARRIOS) (Ack 10:03 RENATAoerner) (11:18 LAbe R.N.) US Carotid Doppler Bilat Urgent (10:10/21/2016 Betty BARRIOS) (Ack 10:03 RENATAoerner) (11:18 LAbe R.N.) Lactate, Serum Urgent (10:43 10/21/2016 Betty BARRIOS) (Ack 10:45 KHoermarisela) (11:23 LAbe R.N.) US Abdomen Limited (Yes) Urgent (12:23 10/21/2016 Betty BARRIOS) (Ack 12:32 KHoekrysten) (13:00 LAbe R.N.) Troponin-I Urgent (13:21 10/21/2016 Betty BARRIOS) (Ack 13:26 RENATAoerner) (13:26 RENATAoerner) MEDICATION ORDERS: Aspirin PO 325 mg (NOW) (09:33 10/21/2016 Betty BARRIOS) (Ack 9:42 LAbe R.N.) (9:48 LAbe R.N.) DuoNeb Neb Tx 1 unit dose (NOW) (13:09 10/21/2016 Betty BARRIOS) (Ack 13:25 LAbe R.N.) (15:19 JZiglar) - (Xarelto 10 mg PO x 1) (16:19 10/21/2016 Betty BARRIOS) (Ack 16:26 LAbe R.N.) IV FLUIDS: IV Saline Lock (09:23 10/21/2016 Mariano R.N. per protocol) (Ack 9:24 LAbe R.N.) (9:26 LAbe R.N.) IV NS : initial bolus 1000 mL (1000 mL/hr), then 150 mL/hr (NOW) (10:01 10/21/2016 Betty BARRIOS) (10:12 LAbe R.N.) IV NS : initial bolus 1000 mL (1000 mL/hr), then 150 mL/hr (NOW) (11:16 10/21/2016 Betty BARRIOS) (11:17 LAbe R.N.) ORDER SHEET NOTES: [Electronically signed by Harriett Valdes R.N. (18:38 10/21/2016)] [Electronically signed by Alissa Pascual MD (10:15 10/31/2016)] [Electronically locked/signed by Harriett Valdes R.N. (18:38 10/21/2016)]
--- NOTE | 2016-10-21 16:28 | ED ORDER SUMMARY ---
..... Patient: BARBIE RUSHING OrderSheet [facility] VisitID: [id number] [address] [place] [address] 71y, M Registration Date/Time: 10/21/2016 ORDER SHEET Weight: 131.5 kg (stated) Allergies: Cialis GENERAL ORDERS: CT Head wo Cont Urgent (08:55 10/21/2016 RENATAoerner verbal order read back to Shona Louie) (Ack 8:57 KHoerner) (9:02 KHoerner) Stroke Panel Stat (08:58 10/21/2016 Shona Louie) (Ack 8:58 RENATAoerner) (9:27 LAbe R.N.) Solvent Plant Operator (Continuous) (09:10/21/2016 TJayne R.N. per protocol) (9:27 LAbe R.N.) EKG - ER Stat (09:10/21/2016 LENAayne R.N. per protocol) (9:26 Shon) POC Glucose (09:23 10/21/2016 TJayne R.N. per protocol) (9:27 LAbe R.N.) Oxygen (2 L/min) (NC) (09:23 10/21/2016 TJayne R.N. per protocol) (9:27 LAbe R.N.) Pulse oximeter (09:23 10/21/2016 TJayne R.N. per protocol) (9:27 LAbe R.N.) PT with INR Urgent (09:30 10/21/2016 Betty BARRIOS) (Ack 9:34 RENATAoerner) (10:02 oerner) UA-Culture if indicated Urgent (10:10/21/2016 Betty BARRIOS) (Ack 10:02 Yeimi) (13:00 LAbe R.N.) Echocardiogram Urgent (10:10/21/2016 Betty BARRIOS) (Ack 10:03 RENATAoerner) (11:18 LAbe R.N.) US Carotid Doppler Bilat Urgent (10:10/21/2016 Betty BARRIOS) (Ack 10:03 RENATAoerner) (11:18 LAbe R.N.) Lactate, Serum Urgent (10:43 10/21/2016 Betty BARRIOS) (Ack 10:45 KHoermarisela) (11:23 LAbe R.N.) US Abdomen Limited (Yes) Urgent (12:23 10/21/2016 Betty BARRIOS) (Ack 12:32 KHoekrysten) (13:00 LAbe R.N.) Troponin-I Urgent (13:21 10/21/2016 Betty BARRIOS) (Ack 13:26 RENATAoerner) (13:26 RENATAoerner) MEDICATION ORDERS: Aspirin PO 325 mg (NOW) (09:33 10/21/2016 Betty BARRIOS) (Ack 9:42 LAbe R.N.) (9:48 LAbe R.N.) DuoNeb Neb Tx 1 unit dose (NOW) (13:09 10/21/2016 Betty BARRIOS) (Ack 13:25 LAbe R.N.) (15:19 JZiglar) - (Xarelto 10 mg PO x 1) (16:19 10/21/2016 Betty BARRIOS) (Ack 16:26 LAbe R.N.) IV FLUIDS: IV Saline Lock (09:23 10/21/2016 Mariano R.N. per protocol) (Ack 9:24 LAbe R.N.) (9:26 LAbe R.N.) IV NS : initial bolus 1000 mL (1000 mL/hr), then 150 mL/hr (NOW) (10:01 10/21/2016 Betty BARRIOS) (10:12 LAbe R.N.) IV NS : initial bolus 1000 mL (1000 mL/hr), then 150 mL/hr (NOW) (11:16 10/21/2016 Betty BARRIOS) (11:17 LAbe R.N.) ORDER SHEET NOTES: [Electronically signed by Harriett Valdes R.N. (18:38 10/21/2016)] [Electronically signed by Alissa Pascual MD (10:15 10/31/2016)] [Electronically locked/signed by Harriett Valdes R.N. (18:38 10/21/2016)]
--- NOTE | 2016-10-31 10:16 | ED MED RECONCILIATION SUMMARY ---
Patient: BARBIE RUSHING Medication Reconciliation Report [facility] VisitID: [id number] [address] [place] [address] 71y, M Registration Date/Time: 10/21/2016 Weight: 131.5 kg Height/Length: 71 in. BMI: 40.5 ALLERGIES: Cialis The patient's Home Medications are listed below: CONTINUE TAKING THE FOLLOWING MEDICATIONS: Aspirin Oral Atorvastatin Calcium Oral Coreg Coreg Oral Effexor XR Oral Gabapentin Oral 300 mg, at bedtime HCTZ 1/2 tab daily LIsinopril Lisinopril Oral Lotrisone External Metformin MetFORMIN HCl Oral Methadone HCl Oral (10 mg) 1 tablet MiraLax Oral Nystatin & Diaper Rash Product External Nystop External Omeprazole Oral OxyCODONE HCl Oral Plavix Oral ProAir HFA Inhalation Spiriva HandiHaler Inhalation Symbicort Inhalation (160-4.5 mcg/act) Theophylline Oral Topamax Oral 25 mg, 2x a day TraZODone HCl Oral ZyrTEC Allergy Oral (10 mg) 1 tablet The source(s) of the original Home Medication information: Not obtained. The following Medications were given to the patient in the Emergency Department: Aspirin [PO] PO 325 mg, administered: 10/21/2016 9:48:00 AM IV NS IV Fluids bolus 0, then 1000 mL/hr, administered: 10/21/2016 10:12:00 AM IV NS IV Fluids bolus 0, then 1000 mL/hr, administered: 10/21/2016 11:07:00 AM Duoneb [Neb Tx] Neb TX 1 unit dose, administered: 10/21/2016 2:34:00 PM The following Medications were prescribed to the patient: Xarelto 10 mg PO daily, disp #30, generic okay, no refills. -- Alissa Pascual MD
--- NOTE | 2016-10-31 10:16 | ED MED RECONCILIATION SUMMARY ---
Patient: BARBIE RUSHING Medication Reconciliation Report [facility] VisitID: [id number] [address] [place] [address] 71y, M Registration Date/Time: 10/21/2016 Weight: 131.5 kg Height/Length: 71 in. BMI: 40.5 ALLERGIES: Cialis The patient's Home Medications are listed below: CONTINUE TAKING THE FOLLOWING MEDICATIONS: Aspirin Oral Atorvastatin Calcium Oral Coreg Coreg Oral Effexor XR Oral Gabapentin Oral 300 mg, at bedtime HCTZ 1/2 tab daily LIsinopril Lisinopril Oral Lotrisone External Metformin MetFORMIN HCl Oral Methadone HCl Oral (10 mg) 1 tablet MiraLax Oral Nystatin & Diaper Rash Product External Nystop External Omeprazole Oral OxyCODONE HCl Oral Plavix Oral ProAir HFA Inhalation Spiriva HandiHaler Inhalation Symbicort Inhalation (160-4.5 mcg/act) Theophylline Oral Topamax Oral 25 mg, 2x a day TraZODone HCl Oral ZyrTEC Allergy Oral (10 mg) 1 tablet The source(s) of the original Home Medication information: Not obtained. The following Medications were given to the patient in the Emergency Department: Aspirin [PO] PO 325 mg, administered: 10/21/2016 9:48:00 AM IV NS IV Fluids bolus 0, then 1000 mL/hr, administered: 10/21/2016 10:12:00 AM IV NS IV Fluids bolus 0, then 1000 mL/hr, administered: 10/21/2016 11:07:00 AM Duoneb [Neb Tx] Neb TX 1 unit dose, administered: 10/21/2016 2:34:00 PM The following Medications were prescribed to the patient: Xarelto 10 mg PO daily, disp #30, generic okay, no refills. -- Alissa Pascual MD
--- NOTE | 2016-10-31 10:16 | ED MAR SUMMARY ---
..... Medication Administration Record [facility] [address] [place] [address] Patient: BARBIE RUSHING Visit ID: [id number] 71y, M Weight: 131.5 kg Height/Length: 71 in BMI: 40.5 ALLERGIES: Cialis Given 09:48 10/21/2016 Harriett Valdes R.N. Medication Administered: ASPIRIN [PO], Dose: 325 mg PO. Medication Ordered: Aspirin PO 325 mg (NOW). Start 10:12 10/21/2016 Harriett Valdes R.N., Stop 11:06 10/21/2016 Harriett Valdes R.N. Medication Administered: IV NS (SALINE), Dose: IV Fluids, Rate: 1000 mL/hr, Dispensed: 1000 mL bag, Site: #1 left forearm. Medication Ordered: IV NS : initial bolus 1000 mL (1000 mL/hr), then 150 mL/hr (NOW). Start 11:07 10/21/2016 Harriett Valdes R.N., Stop 17:40 10/21/2016 Harriett Valdes R.N. Medication Administered: IV NS (SALINE), Dose: IV Fluids, Rate: 1000 mL/hr, Dispensed: 1000 mL bag, Site: #1 left forearm. Medication Ordered: IV NS : initial bolus 1000 mL (1000 mL/hr), then 150 mL/hr (NOW). Given 14:34 10/21/2016 Juvenal Fritz, Medication Administered: DUONEB [NEB TX] (IPRATROPIUM-ALBUTEROL), Dose: 1 unit dose Nebulizer Neb TX. Medication Ordered: DuoNeb Neb Tx 1 unit dose (NOW).
--- NOTE | 2016-10-31 10:16 | ED DISCHARGE INSTRUCTIONS ---
Patient: BARBIE RUSHING General Instructions [facility] VisitID: [id number] [address] [place] [address] 71y, M Registration Date/Time: 10/21/2016 Single acute transient ischemic attack. Moderate dehydration INSTRUCTIONS (You have an appointment at [facility] for an echocardiogram (heart ultrasound) at 10:30 AM on Tuesday, 10/25. The next morning at 9:50, you have an appointment with Dr. Boles to follow up the results of this test. In the meantime, it is very important that you take the blood thinners you have been started on, as well as your other medications. You have had a mini-stroke today, and your symptoms have completely resolved. The biggest issue with this kind of stroke is that it can be a warning that you are at risk for a bigger stroke. The most important thing at this point in time is to do what you can to prevent that from happening. This is the reason for the blood thinners and the other medications you are on.). Warnings: Further evaluation is necessary. It is very important to follow up with a physician. GENERAL WARNINGS: Return or contact your physician immediately if your condition worsens or changes unexpectedly, if not improving as expected, or if other problems arise. Your Current Medications: CONTINUE TAKING THE FOLLOWING MEDICATIONS: Aspirin Oral. Atorvastatin Calcium Oral. Coreg*. Coreg Oral. Effexor XR Oral. Gabapentin Oral : 300 mg at bedtime. HCTZ 1/2 tab daily*. LIsinopril*. Lisinopril Oral. Lotrisone External. Metformin*. MetFORMIN HCl Oral. Methadone HCl Oral : Tablet 10 mg, 1 tablet. MiraLax Oral. Nystatin & Diaper Rash Product External. Nystop External. Omeprazole Oral. OxyCODONE HCl Oral. Plavix Oral. ProAir HFA Inhalation. Spiriva HandiHaler Inhalation. Symbicort Inhalation : Aerosol 160-4.5 mcg/act. Theophylline Oral. Topamax Oral : 25 mg 2x a day. TraZODone HCl Oral. ZyrTEC Allergy Oral : Tablet 10 mg, 1 tablet. Prescription Medications: Xarelto 10 mg PO daily, disp #30, generic okay, no refills. Understanding of the discharge instructions verbalized by patient. Follow-up with: Sabino Boles MD, [facility], , [facility], [address] [facility], [place], [facility] Follow up Tuesday. Reason for referral: You have an appointment scheduled for 9:50 AM on October 26, to follow up your heart ultrasound and blood thinners for your heart. ADDITIONAL INFORMATION TIA: Transient Ischemic Attack The spell you had today is called a TIA (mini-stroke). It is caused by a temporary decrease or blockage of blood flow to a part of your brain. A TIA often happens when a blood clot travels to a blood vessel in the brain. The clot reduces or blocks blood flow, resulting in the symptoms you had. After a short while, the clot dissolves, blood flows again, and the symptoms disappear. Persons with atherosclerosis (hardening of the arteries) or atrial fibrillation (a type of irregular heartbeat) are at higher risk of TIA. TIA causes temporary symptoms similar to a stroke, but lasts less than 24 hours. A full stroke causes symptoms that last more than 24 hours and may be permanent. Once you have had a TIA, you are at risk of having a full stroke. Therefore, be sure to follow up with your doctor for further evaluation. This may include an ultrasound of the arteries in your neck and an evaluation of your heart. If problems are found, your doctor will recommend treatment with medications and/or procedures. Medications to reduce your chance of having another TIA (and stroke) include those that prevent blood clots, such as antiplatelet medicines and anticoagulant medicines. Home care The following guidelines will help you take care of yourself at home: If all of your symptoms have resolved, there is nothing special that you need to do today. Rest at home and avoid exertion for the rest of the day. If your doctor has prescribed antiplatelet medication, take it as directed. Other ways to reduce your risk of a stroke Hypertension, diabetes, elevated cholesterol, and smoking are risk factors for stroke and heart disease. These can be controlled through medications, diet and lifestyle changes. Taking daily aspirin (or similar medications) is a simple but important part of preventing stroke. Follow-up care Call your doctor for an appointment in the next few days for another evaluation. Additional tests may be needed. If you had an X-ray, CT scan, MRI scan, or ECG (electrocardiogram), it will be reviewed by a specialist. Youll be notified of any new findings that will affect your care. When to call 911 or emergency services Get immediate medical attention if any of the following occur: Any of your TIA symptoms return New problems with speech, vision, walking, or weakness or numbeness of the face or on one side of the body Severe headache, fainting spell, dizziness, or seizure Dehydration (Adult) Dehydration occurs when your body loses too much fluid. This may be the result of vomiting a lot or from diarrhea,sweating a lot, or a high fever. It may also happen if you dont drink enough fluid when youre sick. Misuse of diuretics (water pills) can also be a cause. Symptoms include thirst and feeling dizzy, weak, fatigued, or very drowsy. The diet described below is usually enough to treat most cases. Sometimes you may needmedicine. Home Care Follow these guidelines for home care: Drink at least 12 8-ounce glasses of fluid every day to overcome the dehydration. Fluid may include water; orange juice; lemonade; apple, grape, and cranberry juice; clear fruit drinks; electrolyte replacement and sports drinks; and teas and coffee without caffeine. If you have been diagnosed with a kidney disease, ask your doctor how much and what types of fluids you should drink to prevent dehydration. If you have kidney disease, drinking too much fluid can cause it build up in the your body and be dangerous to your health. If you have fever, muscle aching, or headache from a viral syndrome, you may useacetaminophen or ibuprofen, unless another medicine was prescribed for this.If you have chronic liver or kidney disease or ever had a stomach ulcer or GI bleeding, talk with your doctor before using these medicines. Don't take aspirin if you are younger than 18 and are ill with a fever.Aspirin raises the chance forsevere liver injury. Follow-up care Follow up with your health care provider if you don't get better in the next 24 to 48 hours. When to seek medical care Get prompt medical attention if any of theseoccur: Continued vomiting (cant keep liquids down) Frequent diarrhea (more than 5 times a day); blood (red or black color) or mucus in diarrhea Blood in vomit or stool Swollen abdomen or increasing abdominal pain Weakness, dizziness, or fainting Unusually drowsy or confused Reduced urine output or extreme thirst Fever of 100.4 F (38 C) oral or higher that does not get better with fever medication You have been given the following additional information: TIA: Transient Ischemic Attack Dehydration (Adult) (Electronically signed by Alissa Pascual MD 10/31/2016 10:15)
--- NOTE | 2016-10-31 10:16 | ED MAR SUMMARY ---
..... Medication Administration Record [facility] [address] [place] [address] Patient: BARBIE RUSHING Visit ID: [id number] 71y, M Weight: 131.5 kg Height/Length: 71 in BMI: 40.5 ALLERGIES: Cialis Given 09:48 10/21/2016 Harriett Valdes R.N. Medication Administered: ASPIRIN [PO], Dose: 325 mg PO. Medication Ordered: Aspirin PO 325 mg (NOW). Start 10:12 10/21/2016 Harriett Valdes R.N., Stop 11:06 10/21/2016 Harriett Valdes R.N. Medication Administered: IV NS (SALINE), Dose: IV Fluids, Rate: 1000 mL/hr, Dispensed: 1000 mL bag, Site: #1 left forearm. Medication Ordered: IV NS : initial bolus 1000 mL (1000 mL/hr), then 150 mL/hr (NOW). Start 11:07 10/21/2016 Harriett Valdes R.N., Stop 17:40 10/21/2016 Harriett Valdes R.N. Medication Administered: IV NS (SALINE), Dose: IV Fluids, Rate: 1000 mL/hr, Dispensed: 1000 mL bag, Site: #1 left forearm. Medication Ordered: IV NS : initial bolus 1000 mL (1000 mL/hr), then 150 mL/hr (NOW). Given 14:34 10/21/2016 Juvenal Fritz, Medication Administered: DUONEB [NEB TX] (IPRATROPIUM-ALBUTEROL), Dose: 1 unit dose Nebulizer Neb TX. Medication Ordered: DuoNeb Neb Tx 1 unit dose (NOW).
== END 2016-10-21 17:45 | disposition home or self-care (01) ==
LOC: ED SRH 08:51
DX: G45.9 Transient cerebral ischemic attack, unspecified (principal); E86.0 Dehydration; I10 Essential (primary) hypertension; E11.9 Type 2 diabetes mellitus without complications; Z79.84 Long term (current) use of oral hypoglycemic drugs; Z86.73 Personal history of transient ischemic attack (TIA), and cerebral infarction without residual deficits; Z79.51 Long term (current) use of inhaled steroids; Z79.899 Other long term (current) drug therapy; Z79.82 Long term (current) use of aspirin
CPT/HCPCS: 90004; 90074; 90100; 90616; 91556; 92031; 94001; 94050; 94060; 95059

== ENCOUNTER → 2016-10-25 | Outpatient (CLI) | payer OTHER ==
--- NOTE | 2016-10-25 16:38 | DIAGNOSTIC IMAGING REPORT ---
REFERRING PHYSICIAN/PROVIDER: Sabino Boles MD CONSULTING SENIOR ELECTRONICS DESIGN ENGINEER: Juvenal Christensen MD PROCEDURE: M-mode 2D echocardiography with spectral and color flow Doppler TECHNICAL QUALITY: Fair INDICATION: CVA RHYTHM DURING PROCEDURE: The rhythm during the procedure is atrial fibrillation with rapid ventricular response INTERPRETATIONS: LEFT VENTRICLE: There is mild concentric left ventricular hypertrophy. The interventricular septum measures 1.2 cm in diameter and the posterior wall measures 1.2 cm in thickness. There is normal left ventricular size and normal left ventricular systolic function (LVEF = 65%). There are no wall motion abnormalities noted. RIGHT VENTRICLE: There is mild right ventricular enlargement noted. There is normal right ventricular systolic function noted. There is no wall motion abnormalities noted. ATRIA: There is mild biatrial enlargement. MITRAL VALVE: The mitral valve leaflets appear normal. There is mitral annular calcification noted. There is no evidence of mitral stenosis noted. There is mild mitral regurgitation. AORTIC VALVE: There is aortic sclerosis without any evidence of aortic stenosis noted. TRICUSPID VALVE: There is moderate tricuspid regurgitation noted. There is mildly increased right ventricular systolic pressure (RVSP = 36 mmHg). PULMONIC VALVE: There is trace pulmonic regurgitation noted. GREAT VESSELS: There proximal ascending aorta is normal PERICARDIUM: There is no evidence of a pericardial effusion noted. IMPRESSION: 1. Mild concentric left ventricular hypertrophy noted. 2. Normal left ventricular size and systolic function (LVEF = 65%) 3. Mildly dilated right ventricle with normal right ventricular systolic function 4. Mitral annular calcification 5. Mild aortic sclerosis without any significant aortic stenosis noted 6. Moderate tricuspid regurgitation 7. Mildly increased right ventricular systolic pressure (RVSP = 36 mmHg)
== END ==
LOC: US SRH 10:30
DX: I07.9 Rheumatic tricuspid valve disease, unspecified (principal); I34.8 Other nonrheumatic mitral valve disorders; I35.0 Nonrheumatic aortic (valve) stenosis